=== PATIENT | male | born 1985 | race Caucasian/White ===

== ENCOUNTER 2019-01-11 05:48 | Day surgery (SDC) | payer OTHER ==
[2018-12-29 16:23] VITALS: BMI 22.4
[2019-01-11] VITALS (13 sets, daily range): BP systolic 118–155; BP diastolic 62–96; PULSE 76–94; RESP 15–22; Ht 185.4 cm; Wt 74.8 kg
[~2019-01-11] VITALS: Ht 185.4 cm; Wt 74.8 kg
[2019-01-11] MEDS ORDERED: CEFAZOLIN 1 GM INJ ONE ×2 (07:00→11:48)
--- NOTE | 2019-01-11 07:05 | PREAC ---
Date/Time of Note Date/Time of Note DATE: 01/11/19 TIME: 07:03 Anesthesia Eval and Record Evaluation Time Pre-Procedure Interview DATE: 01/11/19 TIME: 07:03 Age 33 Sex male NPO: 8 hrs Preoperative diagnosis right shoulder degenerative joint disease Planned procedure right shoulder operative arthroscopy, extensive debridement, decompression, trinity procedure, possible stabilization, possible SLAP repair Past Medical History Past Medical History: None Surgery & Anesthesia Issues No known issue Meds Anticoagulation: No Beta Rehana within 24 hr: No Reason Beta Rehana not given: Pt. not on B-Rehana Meds reviewed: Yes Allergies Coded Allergies: No Known Allergy (Unverified , 12/29/18) Allergies Reviewed: Yes Labs/Studies Labs Reviewed: Reviewed by anesthesiologist test: N/A Pre-procedure Exam Last vitals Vital Signs Date Temp Pulse Resp B/P (MAP) Pulse Ox O2 O2 Flow FiO2 Time Delivery Rate 01/11/19 97.9 92 18 118/91 98 06:26 (100) Airway: Adequate mouth opening, Adequate thyromental dist Mallampati: Mallampati II Teeth: Normal Lung: Normal Heart: Normal ASA Physical Status ASA physical status: 1 Emergency: None Planned Anesthetic General/MAC: ETT Nerve block: Brachial plexus (right) Planned Pain Management Single shot nerve block, Parenteral pain med Pre-operative Attestations Prior to commencing anesthesia and surgery, the patient was re-evaluated, there was verification of: *The patient's identity *The results of appropriate recent lab work and preoperative vital signs *The above evaluation not changing prior to induction *Anesthetic plan, risk benefits, alternative and complications discussed with pa tient/family; questions answered; patient/family understands, accepts and wishes to proceed. SABI GARZA MD Jan 11, 2019 07:05
[2019-01-11] MEDS ORDERED: LIDOCAINE 2% (SDV) 5 ML INJ ONE (07:11)
[2019-01-11] MEDS ORDERED: PROPOFOL 20 ML ONE (07:11)
[2019-01-11] MEDS ORDERED: MIDAZOLAM 1 MG/ML 2 ML INJ ONE (07:12)
[2019-01-11] MEDS ORDERED: SUCCINYLCHOLINE CHLORIDE 100 MG/5 ML SYG IV ONE (07:14)
[2019-01-11] MEDS ORDERED: ROCURONIUM 50 MG INJ ONE (07:14)
[2019-01-11] MEDS ORDERED: ROPIVACAINE 0.5 % 30 ML VIAL ONE ×3 (07:15→12:13)
[2019-01-11] MEDS ORDERED: FENTAnyl 50 MCG/ML VIAL ONE (07:18)
[2019-01-11] MEDS ORDERED: FAMOTIDINE 20 MG INJ ONE (07:39)
[2019-01-11] MEDS ORDERED: DEXAMETHASONE 4 MG/ML 5 ML INJ ONE (07:39)
[2019-01-11] MEDS ORDERED: ONDANSETRON 4 MG INJ ONE (07:39)
[2019-01-11] MEDS ORDERED: HYDROmorphONE 2 MG/ML SYG ONE (07:42)
[2019-01-11] MEDS ORDERED: DIPHENHYDRAMINE 50 MG INJ IV PRN (08:00)
[2019-01-11] MEDS ORDERED: PROCHLORPERAZINE 10 MG INJ IV PRN (08:00)
[2019-01-11] MEDS ORDERED: OXYCODONE/ACETAMINOPHEN (5/325) TAB PO PRN ×3 (08:00→12:30)
[2019-01-11] MEDS ORDERED: MIDAZOLAM 1 MG/ML 2 ML INJ IV PRN (08:00)
[2019-01-11] MEDS ORDERED: HYDROmorphONE 1 MG/5 ML IV SYRINGE IV PRN ×3 (08:00)
[2019-01-11] MEDS ORDERED: ONDANSETRON 4 MG INJ IV PRN ×2 (08:00→12:30)
[2019-01-11] MEDS ORDERED: MEPERIDINE 25 MG INJ IV PRN (08:00)
[2019-01-11] MEDS ORDERED: FENTAnyl 50 MCG/ML VIAL IV PRN ×3 (08:00)
[2019-01-11] MEDS ORDERED: POLYMYXIN/BACITRACIN 1L IRRIG IRR ONE (10:37)
[2019-01-11] MEDS ORDERED: POLYMYXIN/BACITRACIN 1L IRRIG ONE (10:43)
[2019-01-11] MEDS ORDERED: POVIDONE IODINE 10% 28.4 GM OINT ONE (10:43)
[2019-01-11] MEDS ORDERED: SOD CHLORIDE 0.9% 1,000 ML IV SCH (12:17)
--- NOTE | 2019-01-11 12:17 | OPPN ---
Date/Time of Note Date/Time of Note DATE: 01/11/19 TIME: 12:14 Operative Report Preoperative Diagnosis Right shoulder SLAP tear, impingement, degenerative joint disease, AC arthropathy. Postoperative Diagnosis same Operation/Procedure Performed Arthroscopic extensive debridement, subacromial decompression, Mark, biceps tenotomy, and open biceps tenodesis. Surgeon see signature line assistant track and field coach DO Gagan Anesthesia: general Estimated blood loss: minimal Transfusion Required none Specimen biceps tendon Grafts/Implants none Complications none LIZ MUNIZ MD Jan 11, 2019 12:17
--- NOTE | 2019-01-11 12:27 | PAC ---
Date/Time of Note Date/Time of Note DATE: 01/11/19 TIME: 12:26 Post-Anesthesia Notes Post-Anesthesia Note Last documented vital signs Vital Signs Date Temp Pulse Resp B/P (MAP) Pulse Ox O2 O2 Flow FiO2 Time Delivery Rate 01/11/19 98.0 12:12 01/11/19 92 18 118/91 98 06:26 (100) Activity: WNL Respiratory function: WNL Cardiovascular function: WNL Mental status: Baseline Pain reasonably controlled: Yes Hydration appropriate: Yes Nausea/Vomiting absent: Yes Comments BP: 139/75 HR: 82 RR: 15 T: 98 SaO2: 99% SABI GARZA MD Jan 11, 2019 12:27
[2019-01-11] MEDS ORDERED: morphine 2 MG INJ IV PRN (12:30)
[2019-01-11] MEDS ORDERED: hydrALAzine 20 MG INJ IV PRN (12:30)
--- NOTE | 2019-01-11 14:07 | OPR ---
DATE OF OPERATION: PREOPERATIVE DIAGNOSES: 1. Right shoulder impingement with degenerative joint disease acromioclavicular joint. 2. Rule out superior labrum anterior and posterior tear. 3. Rule out tear rotator cuff. POSTOPERATIVE DIAGNOSES: 1. Complex type 4 superior labrum anterior and posterior tear of the right shoulder. 2. Right shoulder impingement. 3. Degenerative arthritis acromioclavicular joint. 4. 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 5. Partial tear rotator cuff A1, B1. 6. Tear of the posterior labrum. OPERATIONS PERFORMED: 1. Arthroscopy, right shoulder. 2. Extensive debridement of the shoulder. 3. Subacromial decompression. 4. Mark excision 1.2 cm of distal clavicle. 5. Open C-W biceps tenodesis MD SURGEON: Liz Juares MD APPLIANCE SERVICE REPRESENTATIVE: Cruz Farah MD ANESTHESIA: General with supraclavicular block. DESCRIPTION OF PROCEDURE: The patient was taken to the operating room and placed in supine position. Satisfactory supraclavicular block was given. Satisfactory endotracheal anesthesia was administere d. The right shoulder was examined under anesthesia, full range of motion, no evidence of any obviou s instability. The patient was placed in the left lateral decubitus position, secured with beanbag and axillary roll pillows. All areas were carefully padded. The right shoulder was prepped and draped in the usual m macario suspended in traction. Posterior portal was established. Arthroscope was inserted. There was a very complex type 4 SLAP tear of the right shoulder. Biceps was split once from the insertion the n split in the posterior superior aspect of the labrum was completely unstable almost like a bucket h andle tear. We carefully evaluated this area. It seems like a lot of the biceps was attached to the bucket handle tear. Some was also remain on the other portion of the labral capsular junction. It was avascular and did not look like it could be easily repaired. The rest of the posterior central a nd inferior labrum was intact. Posterior recess was intact. The glenoid was smooth. It did have gr lissette 2 to 3 chondromalacia in an area along the anterior central superior portion similar to the MRI. The rotator cuff had minimal fraying, the supraspinatus A1. The superior, middle inferior glenohume rals were intact as was the subscapularis. The humeral head was smooth and glistening with minimal c hondromalacia. After carefully palpating the biceps, labral complex from multiple portals, we felt t hat were repaired it and make it very stiff and there was a good chance it would not heal. We felt t he best choice for this patient because of the complexity of the tear was a biceps tenodesis. Using a spinal needle #1 PDS was placed through the biceps. A #2 FiberWire was then passed into the biceps using hitch type suture. The biceps was then released with electrosurgery and retracted . Rotator cuff was debrided with the shaver. Remaining bucket handle tear of the labrum posterior s uperiorly was excised with a basket and a shaver. Chondroplasty was performed along the glenoid and the labrum was contoured anteriorly and posteriorly. There was no evidence of any obvious tears of t he anterior inferior labrum. After complete debridement, the shoulder was irrigated clear. Bursoscopy, subtotal bursectomy was performed. Moderate amount of bursitis was noted. SUBACROMIAL DECOMPRESSION: The entire subacromial space was debrided and cleaned. The coracoacromia l ligament was released with electrosurgery. A 4 mm of bone was removed from the undersurface of the acromion taking more anteriorly than posteriorly with a bur until the acromion was flat. Once this was done, there was plenty of room for the rotator cuff. SPARKS PROCEDURE: The distal clavicle was exposed with electrosurgery and the shaver. There were d egenerative changes in the AC joint. There was a cyst in the central portion of the distal clavicle. Using a bur, 1.2 cm of distal clavicle was excised with nice smooth margin removing the bone on top to bottom. The cyst was curetted out and removed. We measured until we had 1.2 cm and then the dis silvino clavicle looked excellent. The rotator cuff was debrided. Minimal fraying was seen. The patient was taken out of traction, reprepped and draped. Sleeve over the arm was placed. Drape was applied. All new instruments, gowns, gloves were used. An incision was made skilled nursing above and below the pectoralis tendon in the axillary recess. Dissectio n was carried down to subcutaneous tissue. The fascia was opened. Retractors were placed around the pectoralis laterally and the muscles were exposed medially. The torn tendon was pulled out of the g roove. We cleaned the groove and measured exactly where the biceps tendon should be placed with the arm fully extended and supinated, marked the tendon. A #2 FiberWire was then weaved with a TipRanks st itch through the biceps tendon. The remaining tendon was then cut and sent to pathology. A large ho le measured at tendon to be 6 mm was made with a 6 mm drill. Two very small holes were made to pass our curved crescent for the sutures. A #1 PDS was placed through the small hole and pulled out big h ole. The second was placed as well. The 2 PDS were then wrapped around the sutures and biceps. The biceps was pulled into the large hole, docked into the hole and then tied with the elbow in flexion; however prior to tying it we made sure the arm could fully extend and fully supinate. Excellent fix ation was obtained satisfactory. Biceps tenodesis was performed. Wounds were irrigated with antibio tic solution. Subcutaneous tissue was closed with 3-0 undyed Vicryl, skin with 4-0 running Monocryl. The wound was then bonded together. The other wounds were closed with 3-0 black nylon. Steri-Stri ps were applied. Compression dressing was applied as well as an UltraSling in neutral position. Celestina or to doing this, the wound was infiltrated with 0.5% ropivacaine 10 mL. At the end of procedure, sp onge and needle count was correct. The patient tolerated the procedure well and was taken to recover y room in stable condition. WOOD MILLING MACHINE OPERATOR ORTHOPEDIC SURGEON: During the procedure, an bilingual office assistant orthopedic surgeon was used at [facility]. The bilingual office assistant helped with manipulating the arthroscope, mobilizing the shoulder, passing the sutures and helping to tie the sutures and the knots. Without a skilled orthopedic surgeon irmain , this could not have been performed and should be compensated appropriately. Dictated By: LIZ TSE/SUNDAY Conf#: [id number] DID#: [id number]
== END 2019-01-11 16:21 | disposition home or self-care (01) ==
LOC: SDS 05:48
PROVIDERS: ATTEND Orthopaedic Surgery
DX: M75.51 Bursitis of right shoulder (principal); M25.811 Other specified joint disorders, right shoulder; M13.811 Other specified arthritis, right shoulder; M94.211 Chondromalacia, right shoulder; M75.101 Unspecified rotator cuff tear or rupture of right shoulder, not specified as traumatic; S43.491D Other sprain of right shoulder joint, subsequent encounter; X58.XXXD Exposure to other specified factors, subsequent encounter
CPT/HCPCS: 29823; 29824; 29826; 29827; 88304; J0690; J1100; J1170; J2250; J2405; J2795; J3010